=== PATIENT | male | born 1990 | race Caucasian/White ===

== ENCOUNTER 2018-03-20 09:20 | Emergency (ER) | payer SELFPAY ==
--- NOTE | 2018-03-20 09:51 | EDPHYS ---
Physician Documentation [facility] Name: Jordan Cohen Age: 27 yrs Sex: Male : 1990 Arrival Date: 03/20/2018 Time: 09:23 Bed 5 Private MD: ED Physician Ramsey Bolivar HPI: 03/20 09:39 This 27 yrs old Male presents to ER via Ambulatory with complaints of Insect gs Bite. 09:39 The patient presents with cellulitis of the dorsal aspect of right wrist. Description: gs The affected area is approximately 2 cm(s), 1 cm central eschar, erythematous, indurated, not fluctuant. Onset: The symptoms/episode began/occurred 5 day(s) ago. Possible cause(s): spider bite, staph. Associated signs and symptoms: Pertinent positives: drainage, Pertinent negatives: fever. Modifying factors: the symptoms are alleviated by nothing, the symptoms are aggravated by squeezing the lesion and expressing the contents, touching. Severity of symptoms: At their worst the symptoms were moderate, in the emergency department the symptoms are unchanged. The patient has not experienced similar symptoms in the past. Historical: - Allergies: 09:27 No Known Allergies; hb - Home Meds: 09:27 None [Active]; hb - PMHx: 09: None; hb - PSHx: 09:27 Tonsillectomy; hb - Immunization history:: Adult Immunizations up to date. - Social history:: Smoking status: Patient uses tobacco products, smokes one pack cigarettes per day. ROS: 09:39 Constitutional: Negative for fever. gs 09:39 All other systems are negative. Exam: 09:39 Head/Face: Normocephalic, atraumatic. Eyes: Pupils equal round and reactive to light, gs extra-ocular motions intact. Lids and lashes normal. Conjunctiva and sclera are non-icteric and not injected. Cornea within normal limits. Periorbital areas with no swelling, redness, or edema. ENT: Nares patent. No nasal discharge, no septal abnormalities noted. Tympanic membranes are normal and external auditory canals are clear. Oropharynx with no redness, swelling, or masses, exudates, or evidence of obstruction, uvula midline. Mucous membranes moist. Neck: Trachea midline, no thyromegaly or masses palpated, and no cervical lymphadenopathy. Supple, full range of motion without nuchal rigidity, or vertebral point tenderness. No Meningismus. Chest/axilla: Normal chest wall appearance and motion. Nontender with no deformity. No lesions are appreciated. Cardiovascular: Regular rate and rhythm with a normal S1 and S2. No gallops, murmurs, or rubs. Normal PMI, no JVD. No pulse deficits. Respiratory: Lungs have equal breath sounds bilaterally, clear to auscultation and percussion. No rales, rhonchi or wheezes noted. No increased work of breathing, no retractions or nasal flaring. Abdomen/GI: Soft, non-tender, with normal bowel sounds. No distension or tympany. No guarding or rebound. No evidence of tenderness throughout. Back: No spinal tenderness. No costovertebral tenderness. Full range of motion. Neuro: Awake and alert, GCS 15, oriented to person, place, time, and situation. Cranial nerves II-XII grossly intact. Motor strength 5/5 in all extremities. Sensory grossly intact. Cerebellar exam normal. Normal gait. 09:39 Constitutional: The patient appears alert, awake. 09:39 Musculoskeletal/extremity: ROM: no acute changes, Circulation is intact in all extremities. 09:39 Skin: cellulitis, induration, that is mild is noted, located on the dorsal aspect of right wrist, small central eschar. Vital Signs: 09:27 BP 130 / 80; Pulse 88; Resp 16; Temp 98; Pulse Ox 100% on R/A; Weight 58.97 kg; Height hb 5 ft. 9 in. (175.26 cm); Pain 7/10; 09:27 Body Mass Index 19.20 (58.97 kg, 175.26 cm) hb MDM: 09:36 Patient medically screened. gs 09:39 Differential diagnosis: abscess, cellulitis, insect bite. Data reviewed: vital signs, nurses notes. Counseling: I had a detailed discussion with the patient and/or guardian regarding: the presence of at least one elevated blood pressure reading (>120/80) during this emergency department visit. Response to treatment: There is no appreciated change of the patient's symptoms at this time, and as a result, I will discharge patient. Special discussion: I have referred the patient to see his PCP for further evaluation of high blood pressure. Administered Medications: No medications were administered Disposition: 03/20/18 09:50 Discharged to Home. Impression: Cellulitis of right upper limb, Cutaneous abscess of right upper limb. - Condition is Stable. - Discharge Instructions: Abscess, Cellulitis. - Prescriptions for Clindamycin HCl 150 mg Oral Capsule - take 2 capsule by ORAL route every 8 hours for 7 days; 42 capsule. - Work release form, Medication Reconciliation Form, Thank You Letter, Antibiotic Education, Prescription Opioid Use form. - Follow up: Private Physician; When: 2 - 3 days; Reason: Re-evaluation by your physician. Follow up: Jaime Pantoja MD; When: 2 - 3 days; Reason: Re-evaluation by your physician. - Notes: use chlorohexidine soap twice a day to affected area Signatures: Sondra Muñoz RN RN Adriana Luna RN RN Ramsey Bolivar MD MD Corrections: (The following items were deleted from the chart) 09:27 09:27 PSHx: None; [facility]
--- NOTE | 2018-03-20 09:51 | ER ---
Nurse's Notes [facility] Name: Jordan Cohen Age: 27 yrs Sex: Male : 1990 Arrival Date: 03/20/2018 Time: 09:23 Bed 5 Private MD: Diagnosis: Cellulitis of right upper limb;Cutaneous abscess of right upper limb Presentation: 03/20 09:25 Presenting complaint: Patient states: Painful insect bite on right wrist x 5 days, pain hb is now radiating up to elbow. Denies fever. Transition of care: patient was not received from another setting of care. Onset of symptoms was March 16, 2018. Initial Sepsis Screen: Does the patient meet any 2 criteria? No. Patient's initial sepsis screen is negative. Does the patient have a suspected source of infection? No. Patient's initial sepsis screen is negative. Care prior to arrival: None. 09:25 Acuity: BERNADETTE 4 hb 09:25 Method Of Arrival: Ambulatory hb Historical: - Allergies: 09:27 No Known Allergies; hb - Home Meds: : None [Active]; hb - PMHx: 09: None; hb - PSHx: 09:27 Tonsillectomy; hb - Immunization history:: Adult Immunizations up to date. - Social history:: Smoking status: Patient uses tobacco products, smokes one pack cigarettes per day. Screenin:38 Abuse screen: Denies threats or abuse. Denies injuries from another. Nutritional sv screening: No deficits noted. Tuberculosis screening: No symptoms or risk factors identified. Fall Risk None identified. Assessment: 09:39 General: Appears in no apparent distress. comfortable, slender, Behavior is calm, sv cooperative, appropriate for age. Pain: Complains of pain in right arm Pain currently is 7 out of 10 on a pain scale. Neuro: Level of Consciousness is awake, alert, obeys commands, Oriented to person, place, time, situation, Moves all extremities. Full function Gait is steady, Speech is normal. Respiratory: Respiratory effort is even, unlabored, Respiratory pattern is regular, symmetrical. Derm: Skin is healthy with good turgor, Skin is pink, warm \T\ dry. Musculoskeletal: No signs and/or symptoms reported regarding the musculoskeletal system. Injury Description: Bite sustained to right wrist caused by an unknown animal, is infected, open area noted to be about 1cm circumferential. Vital Signs: 09:27 BP 130 / 80; Pulse 88; Resp 16; Temp 98; Pulse Ox 100% on R/A; Weight 58.97 kg; Height hb 5 ft. 9 in. (175.26 cm); Pain 7/10; 09:27 Body Mass Index 19.20 (58.97 kg, 175.26 cm) hb ED Course: 09:23 Patient arrived in ED. as 09:26 Triage completed. hb 09:27 Shalini Juarez, RN is Primary Nurse. sv 09:27 Arm band placed on right wrist. hb 09:33 Ramsey Bolivar MD is Attending Physician. gs 09:38 Patient has correct armband on for positive identification. Bed in low position. sv 09:40 No provider procedures requiring assistance completed. Patient did not have IV access sv during this emergency room visit. 09:47 Jaime Pantoja MD is Referral Physician. gs Administered Medications: No medications were administered Outcome: 09:50 Discharge ordered by MD. 09:55 Discharged to home ambulatory, with family. sg 09:55 Condition: good 09:55 Discharge instructions given to patient, Instructed on discharge instructions, follow up and referral plans. medication usage, wound care. 09:57 Patient left the ED. ss Signatures: Shalini Juarez RN Stu Benavidez RN RN Lydia Chapman Shelby, RN RN Adriana Luna RN RN Ramsey Bolivar MD MD Corrections: (The following items were deleted from the chart) 09:27 09:27 PSHx: None; hb hb
== END 2018-03-20 09:57 | disposition home or self-care (01) ==
LOC: ER 09:20
DX: L03.113 Cellulitis of right upper limb (principal); L02.413 Cutaneous abscess of right upper limb; F17.210 Nicotine dependence, cigarettes, uncomplicated
CPT/HCPCS: 99281

== ENCOUNTER 2018-06-08 14:14 | Emergency (ER) | payer SELFPAY ==
--- NOTE | 2018-06-08 15:48 | ER ---
Nurse's Notes [facility] Name: Jordan Cohen Age: 27 yrs Sex: Male : 1990 Arrival Date: 06/08/2018 Time: 14:17 Bed 24 Private MD: None, None Diagnosis: Encounter for screening, unspecified Presentation: 06/08 14:41 Presenting complaint: Patient states: " I was working out in the heat for about 10 ph hours yesterday and I think I got dehydrated. I was dizzy when I came inside and I had a bad headache. I drank a lot of gatorade and water and today I am just feeling really tired but my Mom made me come to the ER.". Transition of care: patient was not received from another setting of care. Onset of symptoms was June 08, 2018. Risk Assessment: Do you want to hurt yourself or someone else? Patient reports no desire to harm self or others. Initial Sepsis Screen: Does the patient meet any 2 criteria? No. Patient's initial sepsis screen is negative. Does the patient have a suspected source of infection? No. Patient's initial sepsis screen is negative. Care prior to arrival: None. 14:41 Method Of Arrival: Ambulatory ph 14:41 Acuity: BERNADETTE 3 ph Triage Assessment: 16:00 General: Appears in no apparent distress. comfortable, Behavior is calm, cooperative. rv Pain: Denies pain. EENT: No signs and/or symptoms were reported regarding the EENT system. Neuro: Level of Consciousness is awake, alert, obeys commands, Oriented to person, place, time, situation. Cardiovascular: Heart tones S1 S2 present. Respiratory: Airway is patent. GI: No signs and/or symptoms were reported involving the gastrointestinal system. : No signs and/or symptoms were reported regarding the genitourinary system. Derm: Skin is intact. Historical: - Allergies: 14:39 No Known Allergies; ph - Home Meds: 14:39 None [Active]; ph - PMHx: 14:39 None; ph - PSHx: 14:39 Tonsillectomy; ph - Immunization history:: Adult Immunizations unknown. - Social history:: Smoking status: Patient uses tobacco products, smokes one pack cigarettes per day. - Ebola Screening: : No symptoms or risks identified at this time. Screenin:00 Abuse screen: Denies threats or abuse. Denies injuries from another. Nutritional rv screening: No deficits noted. Tuberculosis screening: No symptoms or risk factors identified. Fall Risk None identified. Vital Signs: 14:39 BP 108 / 72; Pulse 75; Resp 18; Temp 98.2; Pulse Ox 99% on R/A; Weight 54.43 kg; Height ph 5 ft. 9 in. (175.26 cm); Pain 0/10; 14:39 Body Mass Index 17.72 (54.43 kg, 175.26 cm) ph ED Course: 14:17 Patient arrived in ED. sb2 14:17 None, None is Private Physician. sb2 14:40 Arm band placed on Patient placed in waiting room, Patient notified of wait time. ph 14:43 Triage completed. ph 15:31 Denzel Asif PA is PHCP. cp 15:31 Brodie Castro MD is Attending Physician. cp 16:01 Patient has correct armband on for positive identification. Pulse ox on. NIBP on. rv 16:01 No provider procedures requiring assistance completed. Patient did not have IV access rv during this emergency room visit. Administered Medications: No medications were administered Outcome: 15:47 Discharge ordered by MD. cp 16:01 Discharged to home ambulatory. rv 16:01 Condition: good 16:01 Discharge instructions given to patient, Instructed on discharge instructions. 16:01 Patient left the ED. rv Signatures: Vaishali Mcgarry, RN RN Denzel Asif PA PA cp Billeau, Sheri sb2 Walter Barnes RN RN rv Corrections: (The following items were deleted from the chart) 14:43 14:41 Acuity: BERNADETTE 4 ph ph
--- NOTE | 2018-06-08 15:48 | EDPHYS ---
Physician Documentation [facility] Name: Jordan Cohen Age: 27 yrs Sex: Male : 1990 Arrival Date: 06/08/2018 Time: 14:17 Bed 24 Private MD: None, None ED Physician Brodie Castro HPI: 06/08 15:39 This 27 yrs old Male presents to ER via Ambulatory with complaints of cp DEHYDRATION. 15:39 Concerns for dehydration. Worked over 10 hours yesterday outside. Reports nausea and cp vomiting this morning. Resolved after taking Phenergan. Missed work today and needs note. . Historical: - Allergies: 14:39 No Known Allergies; ph - Home Meds: 14:39 None [Active]; ph - PMHx: 14:39 None; ph - PSHx: 14:39 Tonsillectomy; ph - Immunization history:: Adult Immunizations unknown. - Social history:: Smoking status: Patient uses tobacco products, smokes one pack cigarettes per day. - Ebola Screening: : No symptoms or risks identified at this time. ROS: 15:41 Constitutional: Negative for fever, poor PO intake. cp 15:41 Eyes: Negative for injury, pain, redness, and discharge. cp 15:41 ENT: Negative for drainage from ear(s), ear pain, sore throat, difficulty swallowing, difficulty handling secretions. 15:41 Cardiovascular: Negative for chest pain, edema, palpitations. 15:41 Respiratory: Negative for cough, shortness of breath, wheezing. 15:41 Abdomen/GI: Negative for abdominal pain, nausea, diarrhea, constipation, anorexia, active vomiting. 15:41 : Negative for urinary symptoms. 15:41 Skin: Negative for cellulitis, rash. 15:41 Neuro: Negative for altered mental status, dizziness, headache, weakness. 15:41 All other systems are negative. Exam: 15:44 Head/Face: Normocephalic, atraumatic. cp 15:44 Constitutional: The patient appears in no acute distress, alert, awake, non-toxic, well developed, well nourished. 15:44 Eyes: Periorbital structures: appear normal, Pupils: equal, round, and reactive to light and accomodation, Conjunctiva: normal, no exudate, no injection, Sclera: no appreciated abnormality, Lids and lashes: appear normal, bilaterally. 15:44 ENT: External ear(s): are unremarkable, Ear canal(s): are normal, clear, TM's: dullness, bilaterally, Nose: is normal, Mouth: Lips: moist, Oral mucosa: moist, Posterior pharynx: is normal, airway is patent, no erythema, no exudate. 15:44 Neck: ROM/movement: is normal, is supple, without pain, no range of motions limitations, no meningismus, no nuchal rigidity. 15:44 Chest/axilla: Inspection: normal, Palpation: is normal, no crepitus, no tenderness. 15:44 Cardiovascular: Rate: normal, Rhythm: regular, Edema: is not appreciated, JVD: is not appreciated. 15:44 Respiratory: the patient does not display signs of respiratory distress, Respirations: normal, no use of accessory muscles, no retractions, no splinting, no tachypnea, labored breathing, is not present, Breath sounds: are clear throughout, no decreased breath sounds, no stridor, no wheezing. 15:44 Abdomen/GI: Inspection: abdomen appears normal, Bowel sounds: active, all quadrants, Palpation: abdomen is soft and non-tender, in all quadrants, rebound tenderness, is not appreciated, voluntary guarding, is not appreciated, involuntary guarding, is not appreciated. 15:44 Skin: cellulitis, is not appreciated, no rash present. 15:44 Neuro: Orientation: to person, place \T\ time. Mentation: is normal, Cerebellar function: is grossly normal, Motor: moves all fours, strength is normal, Sensation: no obvious gross deficits, Gait: is steady. 15:44 Special observations: the patient tolerates PO fluids, drinking coke while in exam room. Vital Signs: 14:39 BP 108 / 72; Pulse 75; Resp 18; Temp 98.2; Pulse Ox 99% on R/A; Weight 54.43 kg; Height ph 5 ft. 9 in. (175.26 cm); Pain 0/10; 14:39 Body Mass Index 17.72 (54.43 kg, 175.26 cm) ph MDM: 15:31 Patient medically screened. cp 15:45 Differential Diagnosis dehydration, heat exhaustion, electrolyte abnormality. cp 15:46 Data reviewed: vital signs, nurses notes, and as a result, I will discharge patient. cp Administered Medications: No medications were administered Disposition: 18:04 Co-signature as Attending Physician, Brodie Castro MD. rn Disposition: 06/08/18 15:47 Discharged to Home. Impression: Encounter for screening, unspecified. - Condition is Stable. - Discharge Instructions: Dehydration, Adult, Heat Exhaustion Information, Form - Return To Work. - Medication Reconciliation Form, Thank You Letter, Antibiotic Education, Prescription Opioid Use form. - Follow up: Emergency Department; When: As needed; Reason: Worsening of condition. - Problem is new. - Symptoms are unchanged. Signatures: Brodie Castro MD MD rn Vaishali Mcgarry RN RN ph Laya, Denzel, PA PA cp Walter Barnes RN RN rv Corrections: (The following items were deleted from the chart) 15:46 15:31 Orthostatics ordered. cp cp 16:01 15:47 06/08/2018 15:47 Discharged to Home. Impression: Encounter for screening, rv unspecified. Condition is Stable. Forms are Medication Reconciliation Form, Thank You Letter, Antibiotic Education, Prescription Opioid Use. Follow up: Emergency Department; When: As needed; Reason: Worsening of condition. Problem is new. Symptoms are unchanged. cp
== END 2018-06-08 16:01 | disposition home or self-care (01) ==
LOC: ER 14:14
DX: Z03.89 Encounter for observation for other suspected diseases and conditions ruled out (principal); F17.210 Nicotine dependence, cigarettes, uncomplicated
CPT/HCPCS: 99283

== ENCOUNTER 2019-12-11 18:27 | Emergency (ER) | payer SELFPAY ==
--- NOTE | 2019-12-11 19:59 | ER ---
Nurse's Notes [facility] Name: Jordan Cohen Age: 29 yrs Sex: Male : 1990 Arrival Date: 12/11/2019 Time: 18:31 Bed 19 Private MD: Diagnosis: Acute bronchitis, unspecified Presentation: 12/11 18:31 Presenting complaint: Patient states: cough, chills, low back pain, subjective fever x sv 2 days. Transition of care: patient was not received from another setting of care. Onset of symptoms was December 09, 2019. Care prior to arrival: None. 18:31 Method Of Arrival: Ambulatory sv 18:31 Acuity: BERNADETTE 4 sv Triage Assessment: 18:31 General: Appears in no apparent distress. comfortable, Behavior is calm, cooperative, sv appropriate for age, Reports chills for 12-24 hours, fever for 12-24 hours. Pain: Complains of pain in back. Neuro: Level of Consciousness is awake, alert, obeys commands, Gait is steady. Respiratory: Reports cough that is non-productive, Respiratory effort is even, unlabored. Historical: - Allergies: 18:32 No Known Allergies; sv - PMHx: 18:32 None; sv - PSHx: 18:32 Tonsillectomy; sv Screenin:00 Abuse screen: Denies threats or abuse. Nutritional screening: No deficits noted. jb4 Tuberculosis screening: No symptoms or risk factors identified. Fall Risk None identified. Assessment: 19:00 General: Appears in no apparent distress. comfortable, Behavior is calm, cooperative, jb4 appropriate for age. Pain: Denies pain. Neuro: Level of Consciousness is awake, alert, obeys commands, Oriented to person, place, time, situation. Cardiovascular: Patient's skin is warm and dry. Respiratory: Airway is patent Respiratory effort is even, unlabored, Respiratory pattern is regular, symmetrical, Breath sounds are clear bilaterally. GI: No signs and/or symptoms were reported involving the gastrointestinal system. : No signs and/or symptoms were reported regarding the genitourinary system. EENT: No signs and/or symptoms were reported regarding the EENT system. Derm: Skin is intact, Skin is pink, warm \T\ dry. Musculoskeletal: Circulation, motion, and sensation intact. Range of motion: intact in all extremities. Vital Signs: 18:32 BP 127 / 87; Pulse 90; Resp 18; Temp 98.2; Pulse Ox 98% ; Weight 62.6 kg; Height 5 ft. sv 9 in. (175.26 cm); 19:00 Temp 98.2(O); jb4 19:45 BP 115 / 80; Pulse 84; Resp 18; Pulse Ox 100% on R/A; jb4 18:32 Body Mass Index 20.38 (62.60 kg, 175.26 cm) sv ED Course: 18:31 Patient arrived in ED. sv 18:32 Triage completed. sv 18:32 Arm band placed on. sv 18:49 Fidelia Hairston FNP-C is PHCP. snw 18:50 Lele Patricia MD is Attending Physician. snw 19:00 Patient has correct armband on for positive identification. Placed in gown. Bed in low jb4 position. Call light in reach. Side rails up X 1. Pulse ox on. NIBP on. 19:00 Flu and/or RSV swab sent to lab. Strep swab sent to lab. jb4 19:16 Bradley Storey, RN is Primary Nurse. jb4 20:10 No provider procedures requiring assistance completed. Patient did not have IV access jb4 during this emergency room visit. Administered Medications: No medications were administered Outcome: 19:58 Discharge ordered by . snw 20:10 Discharged to home ambulatory, with family. jb4 20:10 Condition: stable 20:10 Discharge instructions given to patient, family, Instructed on discharge instructions, follow up and referral plans. medication usage, Demonstrated understanding of instructions, follow-up care, medications, Prescriptions given X 2. 20:15 Patient left the ED. tl1 Signatures: Shalini Juarez, RN RN Fidelia Hairston FNP-C [employer] C[employer]ODIAN-Marina Chaves RN RN tl1 Bradley Storey, RN RN jb4
--- NOTE | 2019-12-11 19:59 | EDPHYS ---
Physician Documentation [facility] Name: Jordan Cohen Age: 29 yrs Sex: Male : 1990 Arrival Date: 12/11/2019 Time: 18:31 Bed 19 Private MD: ED Physician Lele Patricia HPI: 12/12 02:20 This 29 yrs old Male presents to ER via Ambulatory with complaints of Flu snw Symptoms. 02:20 Onset: The symptoms/episode began/occurred gradually, 3 day(s) ago, and became snw persistent. Associated signs and symptoms: Pertinent positives: constipation, cough, sore throat. Modifying factors: The patient symptoms are alleviated by nothing. The patient has not experienced similar symptoms in the past, but family has similar symptoms, significant other, daughter. The patient has not recently seen a physician. Historical: - Allergies: 12/11 18:32 No Known Allergies; sv - PMHx: 18:32 None; sv - PSHx: 18:32 Tonsillectomy; sv ROS: 12/12 02:19 Constitutional: Negative for fever, chills, and weight loss, Eyes: Negative for injury, snw pain, redness, and discharge, ENT: Negative for injury, pain, and discharge, + congestion Neck: Negative for injury, pain, and swelling, Cardiovascular: Negative for chest pain, palpitations, and edema, Abdomen/GI: Negative for abdominal pain, nausea, vomiting, diarrhea, and constipation, Back: Negative for injury and pain, : Negative for injury, bleeding, discharge, and swelling, MS/Extremity: Negative for injury and deformity, Skin: Negative for injury, rash, and discoloration, Neuro: Negative for headache, weakness, numbness, tingling, and seizure. Respiratory: Positive for cough, wheezing, expiratory. Exam: 02:18 Constitutional: This is a well developed, well nourished patient who is awake, alert, snw and in no acute distress. Head/Face: Normocephalic, atraumatic. Eyes: Pupils equal round and reactive to light, extra-ocular motions intact. Lids and lashes normal. Conjunctiva and sclera are non-icteric and not injected. Cornea within normal limits. Periorbital areas with no swelling, redness, or edema. ENT: Nares patent. No nasal discharge, no septal abnormalities noted. Tympanic membranes are normal and external auditory canals are clear. Oropharynx with no redness, swelling, or masses, exudates, or evidence of obstruction, uvula midline. Mucous membranes moist. Neck: Trachea midline, no thyromegaly or masses palpated, and no cervical lymphadenopathy. Supple, full range of motion without nuchal rigidity, or vertebral point tenderness. No Meningismus. Chest/axilla: Normal chest wall appearance and motion. Nontender with no deformity. No lesions are appreciated. Cardiovascular: Regular rate and rhythm with a normal S1 and S2. No gallops, murmurs, or rubs. Normal PMI, no JVD. No pulse deficits. Abdomen/GI: Soft, non-tender, with normal bowel sounds. No distension or tympany. No guarding or rebound. No evidence of tenderness throughout. Back: No spinal tenderness. No costovertebral tenderness. Full range of motion. Skin: Warm, dry with normal turgor. Normal color with no rashes, no lesions, and no evidence of cellulitis. MS/ Extremity: Pulses equal, no cyanosis. Neurovascular intact. Full, normal range of motion. Neuro: Awake and alert, GCS 15, oriented to person, place, time, and situation. Cranial nerves II-XII grossly intact. Motor strength 5/5 in all extremities. Sensory grossly intact. Cerebellar exam normal. Normal gait. Psych: Awake, alert, with orientation to person, place and time. Behavior, mood, and affect are within normal limits. 02:18 Respiratory: the patient does not display signs of respiratory distress, Respirations: normal, Breath sounds: bronchial sounds, + upper airway congestion. wheezing: expiratory is heard diffusely. Vital Signs: 12/11 18:32 BP 127 / 87; Pulse 90; Resp 18; Temp 98.2; Pulse Ox 98% ; Weight 62.6 kg; Height 5 ft. sv 9 in. (175.26 cm); 19:00 Temp 98.2(O); jb4 19:45 BP 115 / 80; Pulse 84; Resp 18; Pulse Ox 100% on R/A; jb4 18:32 Body Mass Index 20.38 (62.60 kg, 175.26 cm) sv MDM: 18:54 Patient medically screened. snw 20:00 Data reviewed: vital signs, nurses notes. Data interpreted: Pulse oximetry: on room air snw is 100 %. Interpretation: normal. Counseling: I had a detailed discussion with the patient and/or guardian regarding: the historical points, exam findings, and any diagnostic results supporting the discharge/admit diagnosis, lab results, the need for outpatient follow up, to return to the emergency department if symptoms worsen or persist or if there are any questions or concerns that arise at home, smoking cessation. Special discussion: I have referred the patient to see his PCP for further evaluation of high blood pressure. Based on the history and exam findings, there is no indication for further emergent testing or inpatient evaluation. I discussed with the patient/guardian the need to see the primary care provider for further evaluation of the symptoms. 12/11 18:51 Order name: Strep; Complete Time: 19:42 snw 12/11 18:51 Order name: Flu; Complete Time: 19:42 snw 12/11 19:40 Order name: Throat Culture EDMS Administered Medications: No medications were administered Disposition: 12/11/19 19:58 Discharged to Home. Impression: Acute bronchitis, unspecified. - Condition is Stable. - Discharge Instructions: Acute Bronchitis, Adult, Steps to Quit Smoking, Smoking Hazards. - Prescriptions for Tessalon Perles 100 mg Oral Capsule - take 1 capsule by ORAL route every 8 hours As needed; 15 capsule. Zithromax 500 mg Oral Tablet - take 1 tablet by ORAL route once daily for 5 days; 5 tablet. - Work release form, Medication Reconciliation Form, Thank You Letter, Antibiotic Education, Prescription Opioid Use form. - Follow up: Emergency Department; When: As needed; Reason: Worsening of condition. Follow up: Private Physician; When: 2 - 3 days; Reason: Recheck today's complaints, Continuance of care, Re-evaluation by your physician. Signatures: Dispatcher [employer] Shalini Batista RN RN sv Therrien, Shelly, [employer] FORMER-C [employer] FORMER-Marina Chaves RN RN tl1 Corrections: (The following items were deleted from the chart) 20:15 19:58 12/11/2019 19:58 Discharged to Home. Impression: Acute bronchitis, unspecified. tl1 Condition is Stable. Forms are Medication Reconciliation Form, Thank You Letter, Antibiotic Education, Prescription Opioid Use. Follow up: Emergency Department; When: As needed; Reason: Worsening of condition. Follow up: Private Physician; When: 2 - 3 days; Reason: Recheck today's complaints, Continuance of care, Re-evaluation by your physician. dave 20:15 20:15 12/11/2019 19:58 Discharged to Home. Impression: Acute bronchitis, unspecified. tl1 Condition is Stable. Discharge Instructions: Acute Bronchitis, Adult, Steps to Quit Smoking, Smoking Hazards. Prescriptions for Tessalon Perles 100 mg Oral Capsule - take 1 capsule by ORAL route every 8 hours As needed; 15 capsule, Zithromax 500 mg Oral Tablet - take 1 tablet by ORAL route once daily for 5 days; 5 tablet. and Forms are Medication Reconciliation Form, Thank You Letter, Antibiotic Education, Prescription Opioid Use, Work release form. Follow up: Emergency Department; When: As needed; Reason: Worsening of condition. Follow up: Private Physician; When: 2 - 3 days; Reason: Recheck today's complaints, Continuance of care, Re-evaluation by your physician. tl1
[2019-12-12 10:03] VITALS: TEMP 98.2
[2019-12-12 10:06] VITALS: BP 115/80; O2SAT 100
== END 2019-12-11 20:15 | disposition home or self-care (01) ==
LOC: ER 18:27
DX: J20.9 Acute bronchitis, unspecified (principal)
CPT/HCPCS: 87070; 87081; 87804; 99283